=== PATIENT | male | born 1965 | race Caucasian/White ===

== ENCOUNTER → 2024-06-25 | Outpatient (CLI) | payer OTHER, SELFPAY ==
[2024-06-25 13:14] LABS: Collection Type, Urine Clean Catch
[2024-06-25 13:32] LABS: Basophils % (Auto) 1 % (0-2.5); Eosinophils # (Auto) 0.2 Thou/mm3 (0.0-0.5); Eosinophils % (Auto) 3 % (0-10); Hematocrit 41.3 % (41.0-53.0); Hemoglobin 14.2 g/dL (13.5-16.0); Immature Granulocytes % (Auto) 0 % (0-0); Immature Granulocytes Auto 0.01 Thou/mm3 (0.00-0.00); Lymphocytes % (Auto) 27 % (10-50); Mean Corpuscular HGB Conc 34.4 g/dl (31.0-37.0); Mean Corpuscular Hemoglobin 30.1 pg (25.0-35.0); Mean Corpuscular Volume 88 fL (80-100); Monocytes # (Auto) 0.6 Thou/mm3 (0.0-0.8); Monocytes % (Auto) 8 % (0-12); Neutrophils # (Auto) 4.4 Thou/mm3 (1.8-7.7); Neutrophils % (Auto) 61 % (37-80); Nucleated Red Blood Cell % 0 /100 WBC (0); Platelet Count 225 Thou/mm3 (140-440); RDW Standard Deviation 39.8 fL (35.1-43.9); Red Blood Count 4.72 Miln/mm3 (4.50-5.90); White Blood Count 7.2 Thou/mm3 (3.8-10.6)
[2024-06-25 13:37] LABS: Bilirubin,Urine Negative (Negative); Blood,Urine Negative (Negative); Clarity,Urine Clear (Clear/Hazy); Color,Urine Yellow (Lt Yel-Yel); Glucose, Urine Negative (Negative); Ketones,Urine Negative (Negative); Leukocyte Esterase,Urine Negative (Negative); Nitrite,Urine Negative (Negative); Protein,Urine Negative (Neg - Trace); RBC,Urine 3 /hpf (0-3); Specific Gravity,Urine 1.023 (1.001-1.035); Squamous Epithelial Cell,Urine < 1 /hpf (0-5); Urobilinogen,Urine Negative mg/dL (0.0-1.0); WBC,Urine 1 /hpf (0-5)
[2024-06-25 13:42] LABS: Glucose Estimated Average 123 mg/dL (80-131); Hemoglobin A1C 5.9 % Hgb (4.8-6.0)
[2024-06-25 13:49] LABS: Creatinine MALB Rnd Ur 142 mg/dL (30-125); Microalbumin Creat Ratio 15 mg/gCrea (<30); Microalbumin, Random Urine 21 mg/L (0-300)
[2024-06-25 13:54] LABS: Alanine Aminotransferase 31 U/L (10-49); Albumin, Serum 4.3 gm/dL (3.5-5.0); Albumin/Globulin Ratio 1.9 (1.2-2.2); Alkaline Phosphatase 73 U/L (46-116); Anion Gap 11 (7-16); Aspartate Amino Transferase 30 U/L (0-34); BUN/Creatinine Ratio 19 Ratio (12-20); Bilirubin,Total 0.6 mg/dL (0.3-1.2); Blood Urea Nitrogen 21 mg/dL (9-23); Calcium 10.3 mg/dL (8.3-10.6); Calcium (Corrected) 10.3 mg/dL (8.5-10.1); Carbon Dioxide 26.9 mMol/L (20.0-31.0); Cardiac Risk Estimate 3.6 RATIO (4.0-6.7); Chloride 104 mMol/L (98-107); Cholesterol 148 mg/dL (132-200); Creatinine (Component) 1.1 mg/dL (0.6-1.3); Globulin 2.3 gm/dL (2.3-3.5); Glucose 96 mg/dL (74-106); HDL Cholesterol 41 mg/dL (40-60); LDL Cholesterol,Calculated 75 mg/dL (0-130); Osmolality,Calculated 286 (275-295); Potassium 3.9 mMol/L (3.4-5.1); Sodium 142 mMol/L (136-145); Total Protein 6.6 gm/dL (5.7-8.2); Triglycerides 160 mg/dL (30-150); Uric Acid 6.9 mg/dL (3.7-9.2); eGFR > 60 See Note
== END | disposition home or self-care (01) ==
PROVIDERS: PCP Family Medicine; Referring Provider Family Medicine; Visit Provider Family Medicine
DX: Z00.00 Encounter for general adult medical examination without abnormal findings (principal); E11.9 Type 2 diabetes mellitus without complications; E79.0 Hyperuricemia without signs of inflammatory arthritis and tophaceous disease; E78.2 Mixed hyperlipidemia
CPT/HCPCS: 36415; 80053; 80061; 81001; 82043; 82570; 83036; 84550; 85025

== ENCOUNTER 2024-11-24 18:23 | Emergency (ER) | payer OTHER, SELFPAY ==
[2024-11-24 18:24] VITALS: BMI 36.2
[2024-11-24 18:35] VITALS: BP 120/86; PULSE 79; RESP 16; TEMP 36.7; O2SAT 96; BMI 36.2
[2024-11-24 19:18] VITALS: BP 140/82; PULSE 81; RESP 14; TEMP 37; O2SAT 99
--- NOTE | 2024-11-24 19:23 | EDNOTE_ITS ---
ED Abdominal Pain RME/HPI General Chief Complaint: Abdominal Pain Stated complaint: ABD PAIN; POSS SBO, SENT BY DR. SIERRA Time seen by provider: 11/24/24 19:14 Arrival date/time: 11/24/24 18:23 RME / HPI RME / HPI narrative: Dr. Fonseca?s Main ED Evaluation: 58yo male presents to the ED for a chief complaint of diffuse abdominal pain. Patient has been having intermittent diffuse abdominal pain (worse at the epigastric area and RLQ) for the last 6 weeks, reporting it got significantly worse today. Patient currently rates his pain a 6-7 out of 10 in severity. Patient denies any N/V/D, fever, chills, sweating, UTI symptoms, or any other associated symptoms. He is passing gas. No previous abdominal surgeries. NKA. Related Data Home Medications ?Medication ?Instructions ?Recorded ?Confirmed omeprazole 40 mg capsule,delayed 40 mg PO QDAY 9 11/25/24 release lisinopril 20 1 tab PO QDAY 02/27/2411/25 mg-hydrochlorothiazide 25 mg tablet aspirin 81 mg tablet,delayed 81 mg PO QDAY 11/25/24 release (Adult Aspirin Regimen) atorvastatin 10 mg tablet mg PO QDAY 11/25/24 famotidine 20 mg tablet mg Q12H 11/25/24 Allergies Allergy/AdvReac Type Severity Reaction Status Date / Time No Known Allergies Allergy Verified 11/24/24 18:26 Review of Systems Review of Systems Systems Reviewed: All systems reviewed, normal except as documented Past Medical History Past Medical History NEUROLOGIC: Negative Neurological Disorders or Seizures CARDIAC: Positive Cardiac Disorders, Hypercholesterolemia and Hypertension; Negative Congestive Heart Failure RESPIRATORY: Negative Chronic Obstructive Pulmonary Disease (COPD) or Asthma GASTROINTESTINAL: Positive Gastrointestinal Disorders (OCCASSIONAL NAUSEA) and Gastroesophageal Reflux Disease GENITOURINARY: Negative Genitourinary Disorders or Renal Disease MUSCULOSKELETAL: Negative Musculoskeletal Disorders ENDOCRINE: Positive Endocrine Disorders and Diabetes Mellitus Type 2 (DIET CONTROLLED); Negative Diabetes Mellitus Type 1 HEMATOLOGIC: Negative Blood Disorders or Sickle Cell Disease OTHER HISTORY: Positive Chicken Pox; Negative Falls, Blood Transfusions, Blood Transfusion Reaction, Anesthesia Reactions or MRSA Family History FAMILY HISTORY: Positive Family Cardiac Disorders Social History SMOKING STATUS: Current every day smoker ED Exam Narrative Physical exam: GENERAL APPEARANCE: alert and oriented x 4, well-developed, well-nourished, no acute distress VITALS: All vitals were reviewed and the pulse ox is 99% on room air, which is normal according to my interpretation. HEENT: Normocephalic, atraumatic; pupils equal, round, reactive to light; EOMI; mucous membranes pink, moist; oropharynx clear NECK: Supple LUNGS: CTABL; no wheezes, no rales, no rhonchi HEART: Regular rate, regular rhythm; normal S1, S2; no murmurs ABDOMEN: non distended; normal BS; soft, no tenderness, no guarding, no rebound; no masses, no organomegaly, no hernia BACK: no CVA tenderness EXTREMITIES: atraumatic; no edema NEUROLOGIC: awake; alert and oriented x4; cranial nerves II-XII grossly intact; no focal sensory or motor deficits PSYCHIATRIC: appropriate mood and affect SKIN: warm, dry, normal color; no rashes Course Quality Measures none Orders Category Date Time Status CT Screening NOW Care 11/24/24 19:24 Active Automotive Manager NOW Care 11/24/24 19:23 Active EKG (ED ONLY) *Do not use* NOW Care 11/24/24 19:[address] abdomen pelvis w con Stat Exams 11/24/24 20:25 Completed EKG (ED Only) Stat Exams 11/24/24 19:23 Draft US abdomen limited Stat Exams 11/24/24 21:14 Completed XR abdomen series w chest 1V Stat Exams 11/24/24 19:25 Completed B-Type Natriuretic Peptide Stat Lab 11/24/24 19:28 Completed CBC Stat Lab 11/24/24 19:28 Completed Comprehensive Metabolic Panel Stat Lab 11/24/24 19:28 Completed Lactate (Lactic Acid) Stat Lab 11/24/24 19:28 Completed Lipase Stat Lab 11/24/24 19:28 Completed Magnesium Stat Lab 11/24/24 19:28 Completed Troponin I Stat Lab 11/24/24 19:28 Completed Troponin I Stat Lab 11/24/24 23:21 Completed UA, C/S IF [Urinalysis, C/S if Indicated] Stat Lab 11/24/24 19:40 Completed Morphine Inj Med 11/24/24 19:23 Discontinued 5 mg IVP X1 ONE Morphine Inj Med 11/25/24 05:17 Discontinued 5 mg IVP X1 ONE Ondansetron Inj [Zofran Inj] Med 11/24/24 19:23 Discontinued 4 mg IVP X1 ONE Ondansetron Inj [Zofran Inj] Med 11/25/24 05:17 Discontinued 4 mg IVP X1 ONE Reevaluation(s) Reevaluation #1: Patient states he feels significantly better compared to when he initially came in. Time: 23:01 Vital Signs Vital signs: Vital Signs Temperature 98.1 F 11/24/24 18:35 Pulse Rate 79 11/24/24 18:35 Respiratory Rate 16 11/24/24 18:35 Blood Pressure 120/86 H 11/24/24 18:35 Pulse Oximetry (%) 96 11/24/24 18:35 Oxygen Delivery Method Room Air 11/24/24 18:35 Abdominal Pain MDM MDM Narrative MDM Narrative:: Scribe Attestation: 11/24/24 - Barbara Juarez am scribing for and in the presence of Dr. Fonseca. 2121: Discussed with Dr. Moss, our radiologist, regarding the patient's CT abdomen pelvis results and comparison with the previous CT done on 09/28/18. Per Dr. Moss, previous CT showed multiple renal cysts, however there was no dilatation of the renal pelvis on the previous scan. 2340: Discussed case with [facility]'s transfer center. Discussed patients ED course, exam findings, labs, and radiology results. States they will not call their urologist until 6 AM. 0538: Discussed case with [facility] transfer center. Discussed patients ED course, exam findings, labs, and radiology results. States they will not call their urologist until 7 AM. 0600: Care signed out to Dr. Perera (emergency physician). Past medical, surgical, social and family history reviewed. Vitals and home medications reviewed. Results and treatment plan discussed. They will assume the care of the patient at this time and will follow the patient, pending transfer. Patient data External records reviewed:: [facility] previous records (Per chart review, patient was seen here on 09/28/18 for diverticulitis.) Clinical information provided by:: patient Social determinants that could affect healthcare access:: none Patient has the following chronic illnesses:: HTN How is presenting disease/condition affected by chronic disease/condition?: uneffected by Evaluation data The following diagnostics were reviewed and interpreted by me:: lab results, radiology exam(s) and EKG tracing(s) Lab and/or radiology exams considered but not ordered:: none Interpretation Summary: CBC normal, AST 162, ALT 126, Troponin normal, BNP normal, Lipase normal, UA unremarkable. EKG done at 1935, NSR, rate of 81, mild low voltage throughout, IVCD, no acute ischemic changes, according to my interpretation. ------- [facility] Report Signed Patient: MARY QUINONES. Record#: [id number] Birthdate: 1965 Age/Sex: 58 / M Location: [facility] Attending Dr: Ordering Physician: Cary Fonseca MD Date of Service: 11/24/24 Procedure(s): XR abdomen series w chest 1V Accession Number(s): [id number] cc: Zion Moss MD; Anne Patterson MD; Cary Fonseca MD~ Examination: Abdominal series 3 views including AP portable chest Technique one AP portable upright chest, AP supine AP upright abdomen total 3 views Date and time: November 24, 2024 1945 hours INDICATIONS: Abdominal pain beginning 6 months ago. FINDINGS: Normal heart size Lungs are clear. Moderate to large amounts of stool throughout the colon. No obstruction Possible 10 mm gallstone IMPRESSION: Moderate to large amounts of stool throughout the colon Consider ultrasound follow-up to confirm cholelithiasis Dictated By: Zion Moss MD Signed By: <Electronically signed by Zion Moss MD in OV> 11/24/242111 [facility] Report Signed Patient: MARY QUINONES [facility]. Record#: [id number] Birthdate: 1965 Age/Sex: 58 / M Location: [facility] Attending Dr: Ordering Physician: Cary Fonseca MD Date of Service: 11/24/24 Procedure(s): CT abdomen pelvis w con Accession Number(s): [id number] cc: Zion Moss MD; Anne Patterson MD; Cary Fonseca MD~ Examination: CT abdomen with intravenous contrast CT pelvis with intravenous contrast 2-D coronal reconstructions 2-D sagittal reconstructions Date and time of exam:November 24, 20242024 hours INDICATIONS: Generalized abdominal pain and vomiting today. CTDI: vol (mGy) 13.3 DLP: (mGycm) 9 or 10 Technique: Multiple axial sections of the abdomen and pelvis have been obtained. 64 slice high-resolution scanner used. 3 mm axial sections have been obtained, post intravenous injection 60 cc Isovue 370 2-D sagittal, coronal reconstructions obtained. Low dose protocols were performed. One or more of the following dose reduction techniques were used; automated exposure control, adjustment of the mA and/or KV according to patient size, use of iterative reconstruction technique. Findings: No focal liver or splenic lesions Cholelithiasis No pancreatic mass Markedly dilated right renal pelvic collecting system, congenital ureteropelvic junction obstruction pattern No bowel obstruction Colonic diverticulosis, no diverticulitis Normal appendix Significant prostatomegaly, 7 cm IMPRESSION: Findings most consistent with advanced congenital right ureteropelvic junction obstruction Recommend urology consultation Significant prostatomegaly Cholelithiasis Dictated By: Zion Moss MD Signed By: <Electronically signed by Zion Moss MD in OV> 11/24/242106 [facility] Signed Patient: MARY QUINONES Record#: [id number] Birthdate: 1965 Age/Sex: 58 / M Location: [facility] Attending Dr: Ordering Physician: Cary Fonseca MD Date of Service: 11/24/24 Procedure(s): US abdomen limited Accession Number(s): [id number] cc: Zion Moss MD; Anne Patterson MD; Cary Fonseca MD~ Examination: Abdomen sonogram, Limited Date and time of exam: November 24, 2024, 2128 hours INDICATIONS: Right upper abdominal pain and elevated liver function tests on laboratory examination today Technique: Real-time aparicio scale transabdominal sonographic images of the upper abdomen obtained. Findings: Gallbladder sludge Gallstones Gallbladder wall 0.3 cm no edema Common bile duct 0.6 cm no stones Pancreatic head 2.8 cm Liver 15.7 cm no liver lesions Normal hepatopedal portal venous flow Patent IVC Large anechoic area involving the right kidney, please see the CT scan abdomen and pelvis today IMPRESSION: Cholelithiasis, negative for cholecystitis Fatty infiltration throughout the liver Dictated By: Zion Moss MD Signed By: <Electronically signed by Zion Moss MD in OV> 11/24/24 2225 Medications / Prescriptions Medications or Prescriptions considered but not ordered:: none Medication administrations:: Medication Administration History Discontinued Medications Morphine Sulfate (Morphine Sulf Inj 10 Mg/Ml Vial) 5 mg IVP X1 ONE Stop: 11/24/24 19:24 Last Admin: 11/24/24 19:32 Dose: 5 mg Documented By: DT Morphine Sulfate (Morphine Sulf Inj 10 Mg/Ml Vial) 5 mg IVP X1 ONE Stop: 11/25/24 05:18 Last Admin: 11/25/24 05:25 Dose: 5 mg Documented By: DT Ondansetron HCl (Ondansetron Inj 2 Mg/Ml Inj 2 Ml) 4 mg IVP X1 ONE Stop: 11/24/24 19:24 Last Admin: 11/24/24 19:33 Dose: 4 mg Documented By: DT Ondansetron HCl (Ondansetron Inj 2 Mg/Ml Inj 2 Ml) 4 mg IVP X1 ONE Stop: 11/25/24 05:18 Last Admin: 11/25/24 05:26 Dose: 4 mg Documented By: DT see above Consultations Consultation(s) initiated? (list below): Yes Diagnosis Differential diagnosis abdominal pain: acute appendicitis and other (cholecystitis, kidney stone, AGE) Most likely diagnosis given after review of the tests above:: right ureteral occlusion, severe hydronephrosis Admission Indicated Admission indicated?: not indicated Explain why admission is indicated or not indicated:: Patient requires a higher [id number]. Admission Request Was there a request for admission?: No Disposition Plan Disposition Plan: other (specify) (Signed out to Dr. Perera at 6 AM pending transfer.) Discharge Plan Prescriptions/Referrals Prescriptions/Med Rec: No Action omeprazole 40 mg Capsule,Delayed Release(Dr/Ec) 40 mg PO QDAY lisinopril-hydrochlorothiazide 20-25 mg tablet 1 tab PO QDAY Patient Comments: TAKE 1 TABLET BY MOUTH EVERY DAY FOR HIGH BLOOD PRESSURE aspirin [Adult Aspirin Regimen] 81 mg tablet,delayed release (DR/EC) 81 mg PO QDAY atorvastatin 10 mg tablet PO QDAY Patient Comments: TAKE 1 TABLET BY MOUTH ONCE NIGHTLY FOR HIGH CHOLESTEROL famotidine 20 mg tablet Q12H Patient Comments: TAKE 1 TABLET BY MOUTH TWICE A DAY Referrals: Anne Kennedy MD [Primary Care Provider] - In 1 week Problem List Clinical Impression: Occlusion of right ureter, Hydronephrosis Patient/Caregiver Discharge Instructions Print Language: Upper Sorbian
--- NOTE | 2024-11-24 19:23 | EKG_ITS ---
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
[2024-11-24] MEDS: MORPHINE SULF INJ 10 MG/ML VIAL 5 MG IVP (19:32)
[2024-11-24] MEDS: ONDANSETRON INJ 2 MG/ML INJ 2 ML 4 MG IVP (19:33)
[2024-11-24 19:42] LABS: Lactate (Lactic Acid) 1.7 mMol/L (0.4-2.0)
[2024-11-24 19:45] LABS: Basophils # (Auto) 0.0 Thou/mm3 (0.0-0.2); Basophils % (Auto) 1 % (0-2.5); Eosinophils # (Auto) 0.1 Thou/mm3 (0.0-0.5); Eosinophils % (Auto) 2 % (0-10); Hematocrit 39.7 % (41.0-53.0); Hemoglobin 13.7 g/dL (13.5-16.0); Immature Granulocytes Auto 0.01 Thou/mm3 (0.00-0.00); Lymphocytes # (Auto) 1.4 Thou/mm3 (1.0-4.8); Lymphocytes % (Auto) 24 % (10-50); Mean Corpuscular HGB Conc 34.5 g/dl (31.0-37.0); Mean Corpuscular Hemoglobin 30.1 pg (25.0-35.0); Mean Corpuscular Volume 87 fL (80-100); Monocytes # (Auto) 0.7 Thou/mm3 (0.0-0.8); Monocytes % (Auto) 11 % (0-12); Neutrophils # (Auto) 3.7 Thou/mm3 (1.8-7.7); Neutrophils % (Auto) 62 % (37-80); Nucleated Red Blood Cell # 0.00 Thou/mm3 (0.00-0.00); Nucleated Red Blood Cell % 0 /100 WBC (0); Platelet Count 220 Thou/mm3 (140-440); RDW Standard Deviation 41.2 fL (35.1-43.9); Red Blood Count 4.55 Miln/mm3 (4.50-5.90); White Blood Count 6.0 Thou/mm3 (3.8-10.6)
[2024-11-24 19:49] LABS: Collection Type, Urine Clean Catch
[2024-11-24 20:02] LABS: B-Type Natriuretic Peptide < 20 pg/mL (0-100)
[2024-11-24 20:02] LABS: Amorphous Crystals,Urine Present (Absent); Bilirubin,Urine Negative (Negative); Blood,Urine Negative (Negative); Clarity,Urine Clear (Clear/Hazy); Color,Urine Yellow (Lt Yel-Yel); Culture Indicated,Urine Not Indicated; Glucose, Urine Negative (Negative); Ketones,Urine Negative (Negative); Leukocyte Esterase,Urine Negative (Negative); Nitrite,Urine Negative (Negative); PH,Urine 8.0 (5.0-7.0); Protein,Urine Negative (Neg - Trace); RBC,Urine 1 /hpf (0-3); Specific Gravity,Urine 1.024 (1.001-1.035); Squamous Epithelial Cell,Urine < 1 /hpf (0-5); Urobilinogen,Urine 4.0 mg/dL (0.0-1.0); WBC,Urine < 1 /hpf (0-5)
[2024-11-24 20:06] LABS: Alanine Aminotransferase 126 U/L (10-49); Albumin, Serum 4.1 gm/dL (3.5-5.0); Albumin/Globulin Ratio 1.9 (1.2-2.2); Alkaline Phosphatase 114 U/L (46-116); Anion Gap 10 (7-16); Aspartate Amino Transferase 162 U/L (0-34); BUN/Creatinine Ratio 15 Ratio (12-20); Bilirubin,Total 0.9 mg/dL (0.3-1.2); Blood Urea Nitrogen 18 mg/dL (9-23); Calcium 9.1 mg/dL (8.3-10.6); Calcium (Corrected) 9.1 mg/dL (8.5-10.1); Carbon Dioxide 26.7 mMol/L (20.0-31.0); Chloride 109 mMol/L (98-107); Creatinine (Component) 1.2 mg/dL (0.6-1.3); Estimated Creatinine Clearance 86.6 mL/min (>60); Globulin 2.2 gm/dL (2.3-3.5); Glucose 117 mg/dL (74-106); Lipase 51 U/L (12-53); Magnesium 1.9 mg/dL (1.6-2.6); Osmolality,Calculated 293 (275-295); Potassium 3.6 mMol/L (3.4-5.1); Sodium 146 mMol/L (136-145); Total Protein 6.3 gm/dL (5.7-8.2); Troponin I < 0.020 ng/mL (0.0-0.045); eGFR > 60 See Note
--- NOTE | 2024-11-24 20:25 | XR_ITS ---
Examination: CT abdomen with intravenous contrast CT pelvis with intravenous contrast 2-D coronal reconstructions 2-D sagittal reconstructions Date and time of exam:November 24, 20242024 hours INDICATIONS: Generalized abdominal pain and vomiting today. CTDI: vol (mGy) 13.3 DLP: (mGycm) 9 or 10 Technique: Multiple axial sections of the abdomen and pelvis have been obtained. 64 slice high-resolution scanner used. 3 mm axial sections have been obtained, post intravenous injection 60 cc Isovue 370 2-D sagittal, coronal reconstructions obtained. Low dose protocols were performed. One or more of the following dose reduction techniques were used; automated exposure control, adjustment of the mA and/or KV according to patient size, use of iterative reconstruction technique. Findings: No focal liver or splenic lesions Cholelithiasis No pancreatic mass Markedly dilated right renal pelvic collecting system, congenital ureteropelvic junction obstruction pattern No bowel obstruction Colonic diverticulosis, no diverticulitis Normal appendix Significant prostatomegaly, 7 cm IMPRESSION: Findings most consistent with advanced congenital right ureteropelvic junction obstruction Recommend urology consultation Significant prostatomegaly Cholelithiasis
--- NOTE | 2024-11-24 21:14 | XR_ITS ---
Examination: Abdomen sonogram, Limited Date and time of exam: November 24, 2024, 2128 hours INDICATIONS: Right upper abdominal pain and elevated liver function tests on laboratory examination today Technique: Real-time aparicio scale transabdominal sonographic images of the upper abdomen obtained. Findings: Gallbladder sludge Gallstones Gallbladder wall 0.3 cm no edema Common bile duct 0.6 cm no stones Pancreatic head 2.8 cm Liver 15.7 cm no liver lesions Normal hepatopedal portal venous flow Patent IVC Large anechoic area involving the right kidney, please see the CT scan abdomen and pelvis today IMPRESSION: Cholelithiasis, negative for cholecystitis Fatty infiltration throughout the liver
[2024-11-24 21:30] VITALS: BP 125/76; PULSE 62; RESP 20; TEMP 36.8; O2SAT 96
[2024-11-24 22:00] VITALS: BP 118/67; RESP 16; O2SAT 96
[2024-11-24 23:00] VITALS: BP 120/70; RESP 18; O2SAT 96
--- NOTE | 2024-11-24 23:22 | PC.NURSE ---
MD Fonseca requesting transfer due to Right Urethral Obstruction, Faxed over imaging report, progress notes, and face sheet to [facility] for review
[2024-11-24 23:39] VITALS: BP 133/84; PULSE 54; RESP 14; TEMP 37; O2SAT 99
[2024-11-24 23:54] LABS: Troponin I < 0.020 ng/mL (0.0-0.045)
[2024-11-25] VITALS (9 sets, daily range): BP systolic 117–145; BP diastolic 53–98; PULSE 53–80; RESP 13–20; TEMP 36.7–37; O2SAT 94–99
--- NOTE | 2024-11-25 04:36 | PC.NURSE ---
Kelly and PETE both stated they will contact their urologist until after 0700. MD Fonseca made aware
[2024-11-25] MEDS: MORPHINE SULF INJ 10 MG/ML VIAL 5 MG IVP (05:25)
[2024-11-25] MEDS: ONDANSETRON INJ 2 MG/ML INJ 2 ML 4 MG IVP (05:26)
--- NOTE | 2024-11-25 06:21 | PD.EDADDENDU ---
Emergency Room Addendum <Romi Oliveira - Last Filed: 11/25/24 16:48> Addendum Narrative: 0600: Care assumed from Dr. Fonseca, the previous shift emergency physician. Past medical, surgical, social and family history reviewed. Vitals and home medications reviewed. I will assume the care of the patient at this time, pending transfer for urology. Please refer to the emergency department record for history and examination from initial visit.? 58-year-old male with past medical history of hypertension presents to the Emergency Department with complaint of central abdominal pain that began in September 2024 and has progressively worsened. Patient describes yesterday as being the worst, stating he felt ?miserable? yesterday. He drinks alcohol socially, smokes cigarettes, and uses drugs. No known allergies reported. Physical exam by me shows patient under no acute distress at this time, stable. Differential diagnoses include peptic ulcer disease, pancreatitis, and substance-related gastrointestinal irritation. Case presented o/n to [facility] urology, received a call back stating that if patient's pain was well-controlled he can follow-up as an outpatient versus transfer to [facility] for a stent. Patient requiring multiple doses of pain medication, states that his pain has been unbearable at home. Patient would like to be transferred for urologic intervention. For urologic intervention. I updated the transfer center, but discussed the case with Dr. Ca [facility], accepted patient for transfer. Patient transferred hemodynamically stable NAD. EMS ETA 1030 hours. Accepted [facility] ER-ER. <Anne Perera MD - Last Filed: 11/27/24 08:41> Addendum Narrative: 0600: Care assumed from Dr. Fonseca, the previous shift emergency physician. Past medical, surgical, social and family history reviewed. Vitals and home medications reviewed. I will assume the care of the patient at this time, pending transfer for urology. Please refer to the emergency department record for history and examination from initial visit.? 58-year-old male with past medical history of hypertension presents to the Emergency Department with complaint of central abdominal pain that began in September 2024 and has progressively worsened. Patient describes yesterday as being the worst, stating he felt ?miserable? yesterday. He drinks alcohol socially, smokes cigarettes, and uses drugs. No known allergies reported. Physical exam by me shows patient under no acute distress at this time, stable. Differential diagnoses include peptic ulcer disease, pancreatitis, and substance-related gastrointestinal irritation. Case presented o/n to [facility] urology, received a call back stating that if patient's pain was well-controlled he can follow-up as an outpatient versus transfer to [facility] for a stent. Patient requiring multiple doses of pain medication, states that his pain has been unbearable at home. Patient would like to be transferred for urologic intervention. For urologic intervention. I updated the transfer center, but discussed the case with Dr. Ca [facility], accepted patient for transfer. Patient transferred hemodynamically stable NAD. Critical Care Time <Romi Oliveira - Last Filed: 11/25/24 16:48> Critical Care Time Critical Care Time: Yes Total Critical Care Time (min.): 60 Attestation: The high probability of sudden, clinically significant deterioration in the patient?s condition required the highest level of my preparedness to intervene urgently. The services I provided to this patient were to treat and/or prevent clinically significant deterioration. Services included the following: chart data review, reviewing nursing notes and/or old charts, documentation time, sap basis consultant collaboration regarding findings and treatment options, medication orders and management, direct patient care, vital sign assessments and ordering, interpreting and reviewing diagnostic studies and lab tests. Aggregate critical care time includes only time during which I was engaged in work directly related to the patient?s care, as described above, whether at bedside or elsewhere in the Emergency Department. It did not include time spent performing other reported procedures or the services of residents, students, nurses or physician assistants. Results <Romi Oliveira - Last Filed: 11/25/24 16:48> Objective Laboratory: Laboratory Last Values WBC 6.0 Thou/mm3 (3.8-10.6) 11/24/24 19:28 RBC 4.55 Miln/mm3 (4.50-5.90) 11/24/24 19:28 Hgb 13.7 g/dL (13.5-16.0) 11/24/24 19:28 Hct 39.7 % (41.0-53.0) L 11/24/24 19:28 MCV 87 fL (80-100) 11/24/24 19:28 MCH 30.1 pg (25.0-35.0) 11/24/24 19:28 MCHC 34.5 g/dl (31.0-37.0) 11/24/24 19:28 RDW Std Deviation 41.2 fL (35.1-43.9) 11/24/24 19:28 Plt Count 220 Thou/mm3 (140-440) 11/24/24 19:28 Neut % (Auto) 62 % (37-80) 11/24/24 19:28 Lymph % (Auto) 24 % (10-50) 11/24/24 19:28 Toole % (Auto) 11 % (0-12) 11/24/24 19:28 Eos % (Auto) 2 % (0-10) 11/24/24 19:28 Baso % (Auto) 1 % (0-2.5) 11/24/24 19:28 Neut # (Auto) 3.7 Thou/mm3 (1.8-7.7) 11/24/24 19:28 Lymph # (Auto) 1.4 Thou/mm3 (1.0-4.8) 11/24/24 19:28 Toole # (Auto) 0.7 Thou/mm3 (0.0-0.8) 11/24/24 19:28 Eos # (Auto) 0.1 Thou/mm3 (0.0-0.5) 11/24/24 19:28 Baso # (Auto) 0.0 Thou/mm3 (0.0-0.2) 11/24/24 19:28 Immature Gran # (Auto) 0.01 Thou/mm3 (0.00-0.00) H 11/24/24 19: Absolute Nucleated RBC 0.00 Thou/mm3 (0.00-0.00) 11/24/24 19: Immature Gran % 0 % (0-0) 11/24/24 19: Nucleated RBC % 0 /100 WBC (0) 11/24/24 19:28 Sodium 146 mMol/L (136-145) H 11/24/24 19:28 Potassium 3.6 mMol/L (3.4-5.1) 11/24/24 19:28 Chloride 109 mMol/L (98-107) H 11/24/24 19:28 Carbon Dioxide 26.7 mMol/L (20.0-31.0) 11/24/24 19:28 Anion Gap 10 (7-16) 11/24/24 19:28 BUN 18 mg/dL (9-23) 11/24/24 19: Creatinine 1.2 mg/dL (0.6-1.3) 11/24/24 19:28 Estim Creat Clear Calc 86.6 mL/min (>60) 11/24/24 19:28 eGFR > 60 See Note (60-) 11/24/24 19: BUN/Creatinine Ratio 15 Ratio (12-20) 11/24/24 19: Glucose 117 mg/dL (74-106) H 11/24/24 19:28 Calculated Osmolality 293 (275-295) 11/24/24 19:28 Lactic Acid 1.7 mMol/L (0.4-2.0) 11/24/24 19:28 Calcium 9.1 mg/dL (8.3-10.6) 11/24/24 19: Corrected Calcium 9.1 mg/dL (8.5-10.1) 11/24/24 19: Magnesium 1.9 mg/dL (1.6-2.6) 11/24/24 19:28 Total Bilirubin 0.9 mg/dL (0.3-1.2) 11/24/24 19:28 AST 162 U/L (0-34) H 11/24/24 19:28 ALT 126 U/L (10-49) H 11/24/24 19:28 Alkaline Phosphatase 114 U/L (46-116) 11/24/24 19: Troponin I < 0.020 ng/mL (0.0-0.045) 11/24/24 23:21 B-Natriuretic Peptide < 20 pg/mL (0-100) 11/24/24 19:28 Total Protein 6.3 gm/dL (5.7-8.2) 11/24/24 19:28 Albumin 4.1 gm/dL (3.5-5.0) 11/24/24 19:28 Globulin 2.2 gm/dL (2.3-3.5) L 11/24/24 19:28 Albumin/Globulin Ratio 1.9 (1.2-2.2) 11/24/24 19:28 Lipase 51 U/L (12-53) 11/24/24 19:28 Ur Collection Type Clean Catch 11/24/24 19:40 Urine Color Yellow (Lt Yel-Yel) 11/24/24 19:40 Urine Clarity Clear (Clear/Hazy) 11/24/24 19:40 Urine pH 8.0 (5.0-7.0) H 11/24/24 19:40 Ur Specific [place] 1.024 (1.001-1.035) 11/24/24 19:40 Urine Protein Negative (Neg - Trace) 11/24/24 19:40 Urine Glucose (UA) Negative (Negative) 11/24/24 19:40 Urine Ketones Negative (Negative) 11/24/24 19:40 Urine Blood Negative (Negative) 11/24/24 19:40 Urine Nitrite Negative (Negative) 11/24/24 19:40 Urine Bilirubin Negative (Negative) 11/24/24 19:40 Urine Urobilinogen (Auto) 4.0 mg/dL (0.0-1.0) 11/24/24 19:40 Ur Leukocyte Esterase Negative (Negative) 11/24/24 19:40 Urine RBC 1 /hpf (0-3) 11/24/24 19:40 Urine WBC < 1 /hpf (0-5) 11/24/24 19:40 Ur Squamous Epith Cells < 1 /hpf (0-5) 11/24/24 19:40 Amorphous Crystals Present (Absent) A 11/24/24 19:40 Urine Bacteria None (None) 11/24/24 19:40 Ur Culture Indicated? Not Indicated 11/24/24 19:40 Imaging: Procedure(s): US abdomen limited Accession Number(s): [id number] cc: Zion Moss MD; Anne Patterson MD; Cary Fonseca MD~ Examination: Abdomen sonogram, Limited Date and time of exam: November 24, 2024, 2128 hours INDICATIONS: Right upper abdominal pain and elevated liver function tests on laboratory examination today Technique: Real-time aparicio scale transabdominal sonographic images of the upper abdomen obtained. Findings: Gallbladder sludge Gallstones Gallbladder wall 0.3 cm no edema Common bile duct 0.6 cm no stones Pancreatic head 2.8 cm Liver 15.7 cm no liver lesions Normal hepatopedal portal venous flow Patent IVC Large anechoic area involving the right kidney, please see the CT scan abdomen and pelvis today IMPRESSION: Cholelithiasis, negative for cholecystitis Fatty infiltration throughout the liver Dictated By: Zion Moss MD Procedure(s): CT abdomen pelvis w yudelka Accession Number(s): [id number] cc: Zion Moss MD; Anne Patterson MD; Cary Fonseca MD~ Examination: CT abdomen with intravenous contrast CT pelvis with intravenous contrast 2-D coronal reconstructions 2-D sagittal reconstructions Date and time of exam:November 24, 20242024 hours INDICATIONS: Generalized abdominal pain and vomiting today. CTDI: vol (mGy) 13.3 DLP: (mGycm) 9 or 10 Technique: Multiple axial sections of the abdomen and pelvis have been obtained. 64 slice high-resolution scanner used. 3 mm axial sections have been obtained, post intravenous injection 60 cc Isovue 370 2-D sagittal, coronal reconstructions obtained. Low dose protocols were performed. One or more of the following dose reduction techniques were used; automated exposure control, adjustment of the mA and/or KV according to patient size, use of iterative reconstruction technique. 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 FINDINGS: Normal heart size Lungs are clear. Moderate to large amounts of stool throughout the colon. No obstruction Possible 10 mm gallstone IMPRESSION: Moderate to large amounts of stool throughout the colon Consider ultrasound follow-up to confirm cholelithiasis Dictated By: Zion Moss MD <Anne Perera MD - Last Filed: 11/27/24 08:41> Objective Laboratory: Laboratory Last Values WBC 6.0 Thou/mm3 (3.8-10.6) 11/24/24 19:28 RBC 4.55 Miln/mm3 (4.50-5.90) 11/24/24 19:28 Hgb 13.7 g/dL (13.5-16.0) 11/24/24 19:28 Hct 39.7 % (41.0-53.0) L 11/24/24 19:28 MCV 87 fL (80-100) 11/24/24 19:28 MCH 30.1 pg (25.0-35.0) 11/24/24 19:28 MCHC 34.5 g/dl (31.0-37.0) 11/24/24 19:28 RDW Std Deviation 41.2 fL (35.1-43.9) 11/24/24 19:28 Plt Count 220 Thou/mm3 (140-440) 11/24/24 19:28 Neut % (Auto) 62 % (37-80) 11/24/24 19:28 Lymph % (Auto) 24 % (10-50) 11/24/24 19:28 Toole % (Auto) 11 % (0-12) 11/24/24 19:28 Eos % (Auto) 2 % (0-10) 11/24/24 19:28 Baso % (Auto) 1 % (0-2.5) 11/24/24 19:28 Neut # (Auto) 3.7 Thou/mm3 (1.8-7.7) 11/24/24 19:28 Lymph # (Auto) 1.4 Thou/mm3 (1.0-4.8) 11/24/24 19:28 Toole # (Auto) 0.7 Thou/mm3 (0.0-0.8) 11/24/24 19:28 Eos # (Auto) 0.1 Thou/mm3 (0.0-0.5) 11/24/24 19:28 Baso # (Auto) 0.0 Thou/mm3 (0.0-0.2) 11/24/24 19:28 Immature Gran # (Auto) 0.01 Thou/mm3 (0.00-0.00) H 11/24/24 19:28 Absolute Nucleated RBC 0.00 Thou/mm3 (0.00-0.00) 11/24/24 19:28 Immature Gran % 0 % (0-0) 11/24/24 19:28 Nucleated RBC % 0 /100 WBC (0) 11/24/24 19:28 Sodium 146 mMol/L (136-145) H 11/24/24 19:28 Potassium 3.6 mMol/L (3.4-5.1) 11/24/24 19:28 Chloride 109 mMol/L (98-107) H 11/24/24 19:28 Carbon Dioxide 26.7 mMol/L (20.0-31.0) 11/24/24 19:28 Anion Gap 10 (7-16) 11/24/24 19:28 BUN 18 mg/dL (9-23) 11/24/24 19:28 Creatinine 1.2 mg/dL (0.6-1.3) 11/24/24 19:28 Estim Creat Clear Calc 86.6 mL/min (>60) 11/24/24 19:28 eGFR > 60 See Note (60-) 11/24/24 19:28 BUN/Creatinine Ratio 15 Ratio (12-20) 11/24/24 19:28 Glucose 117 mg/dL (74-106) H 11/24/24 19:28 Calculated Osmolality 293 (275-295) 11/24/24 19:28 Lactic Acid 1.7 mMol/L (0.4-2.0) 11/24/24 19:28 Calcium 9.1 mg/dL (8.3-10.6) 11/24/24 19:28 Corrected Calcium 9.1 mg/dL (8.5-10.1) 11/24/24 19:28 Magnesium 1.9 mg/dL (1.6-2.6) 11/24/24 19:28 Total Bilirubin 0.9 mg/dL (0.3-1.2) 11/24/24 19:28 AST 162 U/L (0-34) H 11/24/24 19:28 ALT 126 U/L (10-49) H 11/24/24 19:28 Alkaline Phosphatase 114 U/L (46-116) 11/24/24 19:28 Troponin I < 0.020 ng/mL (0.0-0.045) 11/24/24 23:21 B-Natriuretic Peptide < 20 pg/mL (0-100) 11/24/24 19:28 Total Protein 6.3 gm/dL (5.7-8.2) 11/24/24 19:28 Albumin 4.1 gm/dL (3.5-5.0) 11/24/24 19:28 Globulin 2.2 gm/dL (2.3-3.5) L 11/24/24 19:28 Albumin/Globulin Ratio 1.9 (1.2-2.2) 11/24/24 19:28 Lipase 51 U/L (12-53) 11/24/24 19:28 Ur Collection Type Clean Catch 11/24/24 19:40 Urine Color Yellow (Lt Yel-Yel) 11/24/24 19:40 Urine Clarity Clear (Clear/Hazy) 11/24/24 19:40 Urine pH 8.0 (5.0-7.0) H 11/24/24 19:40 Ur Specific [place] 1.024 (1.001-1.035) 11/24/24 19:40 Urine Protein Negative (Neg - Trace) 11/24/24 19:40 Urine Glucose (UA) Negative (Negative) 11/24/24 19:40 Urine Ketones Negative (Negative) 11/24/24 19:40 Urine Blood Negative (Negative) 11/24/24 19:40 Urine Nitrite Negative (Negative) 11/24/24 19:40 Urine Bilirubin Negative (Negative) 11/24/24 19:40 Urine Urobilinogen (Auto) 4.0 mg/dL (0.0-1.0) 11/24/24 19:40 Ur Leukocyte Esterase Negative (Negative) 11/24/24 19:40 Urine RBC 1 /hpf (0-3) 11/24/24 19:40 Urine WBC < 1 /hpf (0-5) 11/24/24 19:40 Ur Squamous Epith Cells < 1 /hpf (0-5) 11/24/24 19:40 Amorphous Crystals Present (Absent) A 11/24/24 19:40 Urine Bacteria None (None) 11/24/24 19:40 Ur Culture Indicated? Not Indicated 11/24/24 19:40
--- NOTE | 2024-11-25 06:55 | PC.NURSE ---
[facility] reached back stated if pt's pain is not controlled then they were recommended by their urologist Beto Ca to transfer for a stent placement, but if pt's pain is controlled then they would recommend pt to be seen out pt. Per MD Will pt needs to be transferred. home appliance technician made aware, disk requested from [employer]. Packet ready for transfer once disk gets added. [facility] made aware that we will proceed with transfer. They stated they will reach out to their urologist and reach back to MD WILL. Dilma made aware.
--- NOTE | 2024-11-25 07:22 | PC.NURSE ---
PT AWAKE ALERT, GCS 15 UPON ASSUMPTION OF CARE. DENIES ANY PAIN CURRENTLY. PT UP TO DATE ON POC AND IN AGREEMENT. VSS ON TELE, CALL AGRAWAL IN REACH, WILL CONT W/POC.
--- NOTE | 2024-11-25 07:28 | PC.CC ---
Addendum entered by Lance Quesada RN 11/25/24 08:39: [facility]30[facility] Original Note: 0705 CALL RECEIVED FROM JOSSUE TRANSFER NURSE AT [facility] WITH ACCEPTING INFORMATION. DR. WILBER VALLADARES ER TO ER. CALL REPORT TO [phone]. CONTACTED ED CHARGE NURSE KIERRA WITH ACCEPTING INFORMATION. [facility] CONTACTED FOR TRANSFER SETUP.
[2024-11-25] MEDS: MORPHINE SULF INJ 10 MG/ML VIAL 4 MG IVP (10:05)
--- NOTE | 2024-11-25 10:28 | PC.NURSE ---
PTS BELONGINGS W/PT ON BACK OF STRETCHER, PT HAD CELLPHONE IN HAND. AT BEDSIDE WHEN IMPERIAL HERE TO TAKE HIM, UP TO DATE ON WHERE PT IS GOING AND WHAT TO EXPECT.
== END 2024-11-25 10:00 | disposition short-term general hospital (02) ==
PROVIDERS: Emergency Medicine; Emergency Provider Emergency Medicine; PCP Family Medicine
DX: N13.1 Hydronephrosis with ureteral stricture, not elsewhere classified (principal); K80.20 Calculus of gallbladder without cholecystitis without obstruction; N40.0 Benign prostatic hyperplasia without lower urinary tract symptoms; K76.0 Fatty (change of) liver, not elsewhere classified; F17.210 Nicotine dependence, cigarettes, uncomplicated; I10 Essential (primary) hypertension
CPT/HCPCS: 36415; 74022; 74177; 76705; 80053; 81001; 83605; 83690; 83735; 83880; 84484; 85025; 93005; 96374; 96375; 96376; 99283; A4649; J2270; J2405; Q9967

== ENCOUNTER → 2024-12-03 | Outpatient (CLI) | payer OTHER, SELFPAY ==
[2024-12-03 15:39] LABS: Basophils # (Auto) 0.1 Thou/mm3 (0.0-0.2); Basophils % (Auto) 1 % (0-2.5); Eosinophils # (Auto) 0.2 Thou/mm3 (0.0-0.5); Eosinophils % (Auto) 4 % (0-10); Hematocrit 41.6 % (41.0-53.0); Hemoglobin 13.8 g/dL (13.5-16.0); Immature Granulocytes Auto 0.02 Thou/mm3 (0.00-0.00); Lymphocytes # (Auto) 1.9 Thou/mm3 (1.0-4.8); Lymphocytes % (Auto) 30 % (10-50); Mean Corpuscular HGB Conc 33.2 g/dl (31.0-37.0); Mean Corpuscular Hemoglobin 30.2 pg (25.0-35.0); Mean Corpuscular Volume 91 fL (80-100); Monocytes # (Auto) 0.6 Thou/mm3 (0.0-0.8); Monocytes % (Auto) 9 % (0-12); Neutrophils # (Auto) 3.6 Thou/mm3 (1.8-7.7); Neutrophils % (Auto) 56 % (37-80); Nucleated Red Blood Cell # 0.00 Thou/mm3 (0.00-0.00); Nucleated Red Blood Cell % 0 /100 WBC (0); Platelet Count 228 Thou/mm3 (140-440); RDW Standard Deviation 44.7 fL (35.1-43.9); Red Blood Count 4.57 Miln/mm3 (4.50-5.90); White Blood Count 6.3 Thou/mm3 (3.8-10.6)
[2024-12-03 17:05] LABS: Alanine Aminotransferase 675 U/L (10-49); Albumin, Serum 4.4 gm/dL (3.4-4.8); Albumin/Globulin Ratio 1.7 (1.2-2.2); Alkaline Phosphatase 303 U/L (46-116); Anion Gap 11 (7-16); Aspartate Amino Transferase 381 U/L (0-34); BUN/Creatinine Ratio 15 Ratio (12-20); Bilirubin,Total 0.5 mg/dL (0.3-1.2); Blood Urea Nitrogen 26 mg/dL (9-23); Calcium 9.7 mg/dL (8.3-10.6); Calcium (Corrected) 9.7 mg/dL (8.5-10.1); Carbon Dioxide 26.1 mMol/L (20.0-31.0); Chloride 105 mMol/L (98-107); Creatinine (Component) 1.7 mg/dL (0.6-1.3); Globulin 2.6 gm/dL (2.3-3.5); Glucose 108 mg/dL (74-106); Osmolality,Calculated 288 (275-295); Potassium 4.0 mMol/L (3.4-5.1); Sodium 142 mMol/L (136-145); Total Protein 7.0 gm/dL (5.7-8.2); eGFR 46 See Note
== END | disposition home or self-care (01) ==
PROVIDERS: PCP Family Medicine; Referring Provider Family Medicine; Visit Provider Family Medicine
DX: K82.9 Disease of gallbladder, unspecified (principal); I10 Essential (primary) hypertension
CPT/HCPCS: 36415; 80053; 85025

== ENCOUNTER 2024-12-09 11:00 | Day surgery (SDC) | payer OTHER, SELFPAY ==
[2024-12-08 10:33] VITALS: BMI 38.0
[2024-12-08 11:32] LABS: Basophils # (Auto) 0.1 Thou/mm3 (0.0-0.2); Basophils % (Auto) 1 % (0-2.5); Eosinophils # (Auto) 0.3 Thou/mm3 (0.0-0.5); Eosinophils % (Auto) 5 % (0-10); Hematocrit 41.4 % (41.0-53.0); Hemoglobin 13.5 g/dL (13.5-16.0); Immature Granulocytes Auto 0.02 Thou/mm3 (0.00-0.00); Lymphocytes # (Auto) 1.3 Thou/mm3 (1.0-4.8); Lymphocytes % (Auto) 25 % (10-50); Mean Corpuscular HGB Conc 32.6 g/dl (31.0-37.0); Mean Corpuscular Hemoglobin 29.9 pg (25.0-35.0); Mean Corpuscular Volume 92 fL (80-100); Monocytes # (Auto) 0.4 Thou/mm3 (0.0-0.8); Monocytes % (Auto) 8 % (0-12); Neutrophils # (Auto) 3.0 Thou/mm3 (1.8-7.7); Neutrophils % (Auto) 60 % (37-80); Nucleated Red Blood Cell # 0.00 Thou/mm3 (0.00-0.00); Nucleated Red Blood Cell % 0 /100 WBC (0); Platelet Count 226 Thou/mm3 (140-440); RDW Standard Deviation 45.3 fL (35.1-43.9); Red Blood Count 4.52 Miln/mm3 (4.50-5.90); White Blood Count 5.0 Thou/mm3 (3.8-10.6)
[2024-12-08 11:38] LABS: INR 1.0 (0.9-1.3); Prothrombin Time 10.5 Seconds (9.0-12.2)
[2024-12-08 12:08] LABS: Alanine Aminotransferase 1063 U/L (10-49); Albumin, Serum 4.6 gm/dL (3.4-4.8); Albumin/Globulin Ratio 2.0 (1.2-2.2); Alkaline Phosphatase 299 U/L (46-116); Anion Gap 8 (7-16); Aspartate Amino Transferase 526 U/L (0-34); BUN/Creatinine Ratio 13 Ratio (12-20); Bilirubin,Total 0.8 mg/dL (0.3-1.2); Blood Urea Nitrogen 16 mg/dL (9-23); Calcium 10.5 mg/dL (8.3-10.6); Calcium (Corrected) 10.5 mg/dL (8.5-10.1); Carbon Dioxide 31.3 mMol/L (20.0-31.0); Chloride 105 mMol/L (98-107); Creatinine (Component) 1.2 mg/dL (0.6-1.3); Estimated Creatinine Clearance 87.6 mL/min (>60); Globulin 2.3 gm/dL (2.3-3.5); Glucose 119 mg/dL (74-106); Osmolality,Calculated 289 (275-295); Potassium 3.6 mMol/L (3.4-5.1); Sodium 144 mMol/L (136-145); Total Protein 6.9 gm/dL (5.7-8.2); eGFR > 60 See Note
[2024-12-09] VITALS (8 sets, daily range): BP systolic 105–143; BP diastolic 71–91; PULSE 62–82; RESP 14–18; TEMP 36.2–37.2; O2SAT 95–100; BMI 36.4
--- NOTE | 2024-12-09 13:42 | SUR.PHASEI ---
pt received from OR in recovery bay 2. pt asleep but responds to voice, breathing unlabored on 8l oxymask. v/s stable. pt dressing to abd dermabond x4 cdi. report received from Nuno Corona and Dr. Freire.
--- NOTE | 2024-12-09 14:00 | XR_ITS ---
Examination: Operative cholangiogram Date and time: December 13, 2024 1514 hours INDICATIONS: Status post laparoscopic cholecystectomy TECHNIQUE AND FINDINGS: AP supine abdomen single view Common hepatic duct 13 mm No common hepatic or common bile duct stones. Contrast in the duodenum IMPRESSION: No common hepatic or common bile duct stones
[2024-12-09] MEDS: fentaNYL CIT INJ 50 mCg/ML AMP 2ML 25 MCG IVP (14:03)
--- NOTE | 2024-12-09 14:10 | ESOP_ITS ---
Date of Procedure 12/09/24 Pre Op Diagnosis Symptomatic cholelithiasis Elevated transaminases Post Op Diagnosis Cholelithiasis with cholecystitis Procedure Laparoscopic cholecystectomy with intraoperative cholangiogram Findings Moderately distended gallbladder with a stone at the neck of the gallbladder. Dilated CBD without obvious stones. Anterior surface of the liver was smooth without nodules or any lesions Procedure Description Patient was brought into the operating room in supine position. After administration of general endotracheal anesthesia abdomen was prepped and draped in standard surgical manner. A Veress needle was inserted through the umbilicus and pneumoperitoneum was obtained up to 15 mmHg. The Veress needle was then removed, a 5 mm infraumbilical incision was made and the 5mm trocar was inserted. Laparoscopic camera was placed. Under direct visualization a laparoscopic camera a 10 mm trocar was placed in subxiphoid and two 5 mm trocars placed in right upper quadrant. The anterior surface of the liver was smooth without nodules or any lesions. The gallbladder was identified and was noted to be moderately distended there was a stone at the neck of the gallbladder. The gallbladder was retracted cephalad and laterally. Dissection started near the infundibulum of gallbladder where cystic duct and gallbladder junction clearly identified. The cystic duct was circumferentially dissected off the peritoneum and surrounding inflammatory tissue. The critical view of safety was clearly demonstrated. An Endo Clip placed in the cystic duct and gallbladder junction and a small ductotomy was performed. Cholangiogram catheter was placed through the ductotomy site and contrast was injected. Cholangiogram x-ray revealed filling of contrast into the duodenum, mildly dilated CBD without obvious stones. The cholangiogram catheter was removed and the cystic duct was divided between 2 endoclips proximally and one distally. The cystic artery was then divided between 2 endoclips proximally and 1 distally. The gallbladder was then from the liver bed using electrocautery. The gallbladder was then placed inside an Endo Catch and removed from the abdomen utilizing subxiphoid trocar site. The area was copiously and thoroughly washed and irrigated, all the fluid was suctioned and the suction fluid returned clear. Hemostasis achieved using electrocautery. Endoclips noted be in place and intact without any bleeding or any leakage. Hemostasis was adequate and satisfactory. The subx iphoid trocar sites fascial defect was closed with 0 Vicryl using Endo Closure device. Instruments and trocars removed, pneumoperitoneum was evacuated and the incisions closed with 4-0 Monocryl in subcuticular fashion. Instrument needle and sponge counts were all reported to be correct X2. Patient tolerated the procedure well, was extubated, breathing spontaneously and without difficulty and was transferred to postanesthesia care in stable condition. Anesthesia GETA and local Pathology / specimen Other (Gallbladder and contents) Estimated Blood Loss 10 Condition Stable Disposition PACU Surgeon Noemi Jang MD Surgical Staff Operation Date: 12/09/24 14:15 Case Staff Anesthesiologist: Kareem Freire RN First Assistant: Janeth Little
--- NOTE | 2024-12-09 14:39 | SUR.PHASEII ---
pt able to tolerate oral fluids without difficulty swallowing or nauea/vomiting.
--- NOTE | 2024-12-09 15:00 | SUR.PHASEII ---
pt awake and alert, breathing unlabored on room air. v/s stable. pt dressing to abd dermabond x4 cdi. pt able to ambulate to wheelchair with steady gait. d/c instructions given with Caroline in room, all questions answered. pt d/c via wheelchair with all belongings.
== END 2024-12-09 15:00 | disposition home or self-care (01) ==
PROVIDERS: PCP Family Medicine; Referring Provider Surgery; Visit Provider Surgery
PROC: 0FT44ZZ Resection of Gallbladder, Percutaneous Endoscopic Approach (ICD-10-PCS; CPT 47562; principal; 2024-12-09 14:00)
DX: K80.10 Calculus of gallbladder with chronic cholecystitis without obstruction (principal); E78.00 Pure hypercholesterolemia, unspecified; I10 Essential (primary) hypertension; K21.9 Gastro-esophageal reflux disease without esophagitis
CPT/HCPCS: 47563; 36415; 74300; 80053; 85025; 85610; A4217; A4649; J0131; J0694; J1100; J2250; J2405; J2704; J3010; J3490

== ENCOUNTER → 2025-01-21 | Outpatient (CLI) | payer OTHER, SELFPAY ==
[2025-01-21 08:18] LABS: Collection Type, Urine Clean Catch; Squamous Epithelial Cell,Urine 0 /hpf (0-5)
[2025-01-21 08:51] LABS: Basophils # (Auto) 0.1 Thou/mm3 (0.0-0.2); Basophils % (Auto) 1 % (0-2.5); Eosinophils # (Auto) 0.3 Thou/mm3 (0.0-0.5); Eosinophils % (Auto) 6 % (0-10); Hematocrit 45.1 % (41.0-53.0); Hemoglobin 14.9 g/dL (13.5-16.0); Immature Granulocytes Auto 0.01 Thou/mm3 (0.00-0.00); Lymphocytes # (Auto) 1.5 Thou/mm3 (1.0-4.8); Lymphocytes % (Auto) 29 % (10-50); Mean Corpuscular HGB Conc 33.0 g/dl (31.0-37.0); Mean Corpuscular Hemoglobin 29.9 pg (25.0-35.0); Mean Corpuscular Volume 91 fL (80-100); Monocytes # (Auto) 0.6 Thou/mm3 (0.0-0.8); Monocytes % (Auto) 11 % (0-12); Neutrophils # (Auto) 2.9 Thou/mm3 (1.8-7.7); Neutrophils % (Auto) 54 % (37-80); Nucleated Red Blood Cell # 0.00 Thou/mm3 (0.00-0.00); Nucleated Red Blood Cell % 0 /100 WBC (0); Platelet Count 171 Thou/mm3 (140-440); RDW Standard Deviation 44.4 fL (35.1-43.9); Red Blood Count 4.98 Miln/mm3 (4.50-5.90); White Blood Count 5.4 Thou/mm3 (3.8-10.6)
[2025-01-21 08:56] LABS: Bilirubin,Urine Negative (Negative); Blood,Urine Negative (Negative); Clarity,Urine Clear (Clear/Hazy); Color,Urine Yellow (Lt Yel-Yel); Glucose, Urine Negative (Negative); Ketones,Urine Negative (Negative); Leukocyte Esterase,Urine Negative (Negative); Nitrite,Urine Negative (Negative); PH,Urine 6.0 (5.0-7.0); Protein,Urine Negative (Neg - Trace); RBC,Urine 1 /hpf (0-3); Specific Gravity,Urine 1.022 (1.001-1.035); Urobilinogen,Urine Negative mg/dL (0.0-1.0); WBC,Urine 1 /hpf (0-5)
[2025-01-21 09:01] LABS: Glucose Estimated Average 131 mg/dL (80-131); Hemoglobin A1C 6.2 % Hgb (4.8-6.0)
[2025-01-21 09:15] LABS: Prostate Specific Antigen 2.59 ng/mL (0-4.00)
[2025-01-21 09:23] LABS: Alanine Aminotransferase 68 U/L (10-49); Albumin, Serum 4.2 gm/dL (3.4-4.8); Albumin/Globulin Ratio 1.9 (1.2-2.2); Alkaline Phosphatase 88 U/L (46-116); Anion Gap 8 (7-16); Aspartate Amino Transferase 49 U/L (0-34); BUN/Creatinine Ratio 16 Ratio (12-20); Bilirubin,Total 0.7 mg/dL (0.3-1.2); Blood Urea Nitrogen 19 mg/dL (9-23); Calcium 10.0 mg/dL (8.3-10.6); Calcium (Corrected) 10.0 mg/dL (8.5-10.1); Carbon Dioxide 29.1 mMol/L (20.0-31.0); Cardiac Risk Estimate 5.3 RATIO (4.0-6.7); Chloride 107 mMol/L (98-107); Cholesterol 223 mg/dL (132-200); Creatinine (Component) 1.2 mg/dL (0.6-1.3); Globulin 2.2 gm/dL (2.3-3.5); Glucose 121 mg/dL (74-106); HDL Cholesterol 42 mg/dL (40-60); LDL Cholesterol,Calculated 137 mg/dL (0-130); Osmolality,Calculated 290 (275-295); Potassium 4.3 mMol/L (3.4-5.1); Sodium 144 mMol/L (136-145); Total Protein 6.4 gm/dL (5.7-8.2); Triglycerides 218 mg/dL (30-150); eGFR > 60 See Note
== END | disposition home or self-care (01) ==
LOC: COPL 06:50
PROVIDERS: PCP Family Medicine; Referring Provider Family Medicine; Visit Provider Surgery
DX: E11.69 Type 2 diabetes mellitus with other specified complication (principal); E78.2 Mixed hyperlipidemia; I10 Essential (primary) hypertension; R94.5 Abnormal results of liver function studies; N40.0 Benign prostatic hyperplasia without lower urinary tract symptoms
CPT/HCPCS: 36415; 80053; 80061; 81001; 83036; 84153; 85025

== ENCOUNTER 2025-01-25 06:10 | Day surgery (SDC) | payer OTHER, SELFPAY ==
[2025-01-21 07:31] VITALS: BMI 36.2
--- NOTE | 2025-01-24 12:04 | ESHP_ITS ---
RE: MARY QUINONES : 1965 DATE OF ADMISSION: 01/24/2025 HISTORY OF PRESENT ILLNESS: He is a 59-year-old male with a history of right- sided hydronephrosis. The patient is a 59-year-old male referred to me by Dr. Kennedy with abdominal pain in the upper abdomen. He has pain on the upper abdomen. Serum creatinine is 1.2. The patient was initially seen in [place] where he was told that he has a cyst on the right kidney. The patient has nocturia x2. His urinary flow is fair. PAST MEDICAL HISTORY: He had a history of gallstones. He has a history of diabetes mellitus, which is controlled by diet. He has a history of hypertension. PAST SURGICAL HISTORY: The patient's previous surgery included cholecystectomy, which was done by Dr. Jang. He had a colonoscopy. SOCIAL HISTORY: He has 3 children. ALLERGIES: NONE KNOWN. HOME MEDICATIONS: 1. Tamsulosin 0.4 mg, which is helping him to urinate. 2. Pepcid. 3. Lisinopril. 4. Hydrochlorothiazide. PHYSICAL EXAMINATION: The patient is 5 feet 11 inches tall. HEENT: Normal. NECK: Supple. LUNGS: Clear. CARDIOVASCULAR: Heart sounds are normal. ABDOMEN: Soft without any organomegaly. No guarding. No rigidity. EXTREMITIES: Normal. GENITOURINARY: Phallus is normal. Testes are down in the scrotum. Rectal examination reveals moderately enlarged smooth prostate without any hard nodules. LABORATORY DATA: CT scan of the abdomen and pelvis, which was obtained, which revealed markedly dilated right renal pelvic collecting system suggestive of congenital right ureteropelvic junction obstruction. There are no stones seen in the kidney or the ureter. IMPRESSION: Right ureteropelvic junction obstruction with right hydronephrosis. PLAN: Cystoscopy, right retrograde pyelogram, right ureteroscopy, and insertion of the right ureteral stent. Planned procedure, risks, and complications have been discussed with the patient. The patient has understood them and agreed to proceed. Thank you very much for allowing me to participate in the management of this patient and thank you very much for your kind referral. cc: Dr. Dann Kennedy MD DT: 11:51:34 TT: 12:03:00 Ref: [id number] - TID: [id number]
[2025-01-25] VITALS (7 sets, daily range): BP systolic 93–124; BP diastolic 53–83; PULSE 74–82; RESP 16–20; TEMP 36.8–37.1; O2SAT 95–97; BMI 37.1
[2025-01-25] MEDS: RINGERS LACTATED 1000 ML 1,000 ML 20 ML IV (06:58)
--- NOTE | 2025-01-25 07:20 | CHAP ---
Visited with patient and gave comfort, encouragement and prayer.
--- NOTE | 2025-01-25 08:30 | XR_ITS ---
Examination: Fluoroscopy Ureteroscopy retrograde 5 spot fluoroscopic abdomen films Date and time: January 25, 2025 1012 hours INDICATIONS: Generalized abdominal pain and vomiting history history right congenital ureteropelvic junction obstruction TECHNIQUE AND FINDINGS: 5 spot fluoroscopic films of the abdomen Contrast in dilated calyces Partial visualization ureteral stent Fluoroscopy 2 minutes 52 seconds Radiation dose 89.182 milligray IMPRESSION: Fluoroscopy for ureteroscopy as above
--- NOTE | 2025-01-25 09:43 | SUR.PHASEI ---
0943 patient arrived to recovery resting comfortably in [facility], on oxygen 5L via oxy mask, breathing unlabored, vital signs stable, denies pain and nausea, report received from James WATSON and [place]esto GANNON/Dr. Freire
--- NOTE | 2025-01-25 10:41 | SUR.PHASEII ---
1041 patient meets discharge criteria from recovery, awake and alert, breathing unlabored, vital signs stable, denies pain and nausea, voided in the restroom, assisted with dressing into his clothing by his , discharge instructions given to patient and patients , signed discharge instructions. Patient given all his belongings prior to discharge, transported via wheelchair and left in a private vehicle.
--- NOTE | 2025-01-25 11:46 | ESOP_ITS ---
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 PROCEDURE: Cystoscopy, right retrograde pyelogram, attempt to pass a guidewire and a stent on the right side. ANESTHESIA: General by Dr. Freire. INDICATION: The patient is a 59-year-old gentleman who had a right-sided upper abdominal pain and he underwent cholecystectomy done by Dr. Jang. The patient's pain on the right side subsided and he does not have any more pain. At that time, CT scan of the abdomen and pelvis was obtained, which revealed bilateral renal cysts and a massively dilated right renal pelvis suggestive of right ureteropelvic junction obstruction. The patient had cholecystectomy done and he has no more pain after the cholecystectomy. The patient's serum creatinine is normal at 1.2. In view of his finding of CAT scan and a massively dilated right renal pelvis, the patient was now scheduled to have cystoscopy, right retrograde pyelogram, and possible insertion of the right ureteral stent. Planned procedure, risks, and complications have been discussed with the patient. The patient understood them and agreed to proceed. DESCRIPTION OF PROCEDURE: After the patient was brought to the operating table under adequate general anesthesia and dorsal lithotomy position, parts were prepped and draped in the usual fashion. Cystoscopy was then carried out, which revealed adequate urethral meatus, normal-appearing urethra, moderately enlarged prostate, which is bilobed. The patient did not have any intravesical stones or tumors. Ureteral orifices are visualized. The right ureteral orifice is closer to the bladder neck and it was catheterized after passing a guidewire through the right ureteral orifice and it was inserted to the proximal ureter. Then on the guidewire, I inserted an open- tip ureteral catheter and removed the guidewire. A right retrograde pyelogram was then obtained, which revealed that the right ureter is open, but there is a massively dilated right renal pelvis causing distortion of the right ureteropelvic junction obstruction. Right ureteropelvic junction appears to have a high insertion of the ureter and it is quite distorted. Multiple attempts were to pass this ureteral catheter and a guidewire which were straight guidewire and curved guidewire, but they would not go upwards toward the renal pelvis into the right kidney. Because of massively dilated ureteropelvic junction obstruction and a massively dilated right renal pelvis, it was decided that we should abandon the procedure as the wire did not go into the right kidney. Procedure was then terminated. The patient tolerated the entire procedure well. PLAN: In view of this massively dilated renal pelvis, consideration would be given to refer this patient for the repair of ureteropelvic junction obstruction through the robotic procedure. Thank you very much for your kind referral and for allowing me to participate in the management of this patient. cc: Dr. Dann Kennedy MD DT: 11:04:12 TT: 11:45:00 Ref: [id number] - TID: [id number]
== END 2025-01-25 10:41 | disposition home or self-care (01) ==
PROVIDERS: PCP Family Medicine; Referring Provider Surgery; Visit Provider Surgery
PROC: (CPT 52282; 2025-01-25 08:30)
DX: N13.1 Hydronephrosis with ureteral stricture, not elsewhere classified (principal); N28.1 Cyst of kidney, acquired; E11.9 Type 2 diabetes mellitus without complications; I10 Essential (primary) hypertension
CPT/HCPCS: 52281; 76000; 87086; A4217; A4649; C1894; J0131; J0694; J1100; J2250; J2371; J2704; J2765; J3010; J3490; J7120; A9270

== ENCOUNTER → 2025-02-22 | Outpatient (CLI) | payer BC, SELFPAY ==
--- NOTE | 2025-02-22 15:10 | EKG_ITS ---
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
[2025-02-22 16:34] LABS: Basophils # (Auto) 0.1 Thou/mm3 (0.0-0.2); Basophils % (Auto) 1 % (0-2.5); Eosinophils # (Auto) 0.3 Thou/mm3 (0.0-0.5); Eosinophils % (Auto) 5 % (0-10); Hematocrit 43.2 % (41.0-53.0); Hemoglobin 14.1 g/dL (13.5-16.0); Immature Granulocytes Auto 0.01 Thou/mm3 (0.00-0.00); Lymphocytes # (Auto) 1.7 Thou/mm3 (1.0-4.8); Lymphocytes % (Auto) 27 % (10-50); Mean Corpuscular HGB Conc 32.6 g/dl (31.0-37.0); Mean Corpuscular Hemoglobin 30.0 pg (25.0-35.0); Mean Corpuscular Volume 92 fL (80-100); Monocytes # (Auto) 0.7 Thou/mm3 (0.0-0.8); Monocytes % (Auto) 11 % (0-12); Neutrophils # (Auto) 3.5 Thou/mm3 (1.8-7.7); Neutrophils % (Auto) 57 % (37-80); Nucleated Red Blood Cell # 0.00 Thou/mm3 (0.00-0.00); Nucleated Red Blood Cell % 0 /100 WBC (0); Platelet Count 198 Thou/mm3 (140-440); RDW Standard Deviation 45.1 fL (35.1-43.9); Red Blood Count 4.70 Miln/mm3 (4.50-5.90); White Blood Count 6.2 Thou/mm3 (3.8-10.6)
[2025-02-22 16:51] LABS: Alanine Aminotransferase 45 U/L (10-49); Albumin, Serum 4.3 gm/dL (3.4-4.8); Albumin/Globulin Ratio 2.3 (1.2-2.2); Alkaline Phosphatase 75 U/L (46-116); Anion Gap 9 (7-16); Aspartate Amino Transferase 51 U/L (0-34); BUN/Creatinine Ratio 17 Ratio (12-20); Bilirubin,Total 0.4 mg/dL (0.3-1.2); Blood Urea Nitrogen 17 mg/dL (9-23); Calcium 9.1 mg/dL (8.3-10.6); Calcium (Corrected) 9.1 mg/dL (8.5-10.1); Carbon Dioxide 26.4 mMol/L (20.0-31.0); Chloride 108 mMol/L (98-107); Creatinine (Component) 1.0 mg/dL (0.6-1.3); Globulin 1.9 gm/dL (2.3-3.5); Glucose 119 mg/dL (74-106); Osmolality,Calculated 287 (275-295); Potassium 4.0 mMol/L (3.4-5.1); Sodium 143 mMol/L (136-145); Total Protein 6.2 gm/dL (5.7-8.2); eGFR > 60 See Note
[2025-02-22 16:53] LABS: INR 1.0 (0.9-1.3); Partial Thromboplastin Time 26.3 Seconds (22.0-36.0); Prothrombin Time 10.2 Seconds (9.0-12.2)
== END | disposition home or self-care (01) ==
PROVIDERS: PCP Family Medicine; Referring Provider Family Medicine; Visit Provider Family Medicine
DX: Z01.812 Encounter for preprocedural laboratory examination (principal); I10 Essential (primary) hypertension; E78.2 Mixed hyperlipidemia; R94.5 Abnormal results of liver function studies; Q62.11 Congenital occlusion of ureteropelvic junction; Z01.810 Encounter for preprocedural cardiovascular examination
CPT/HCPCS: 36415; 80053; 81001; 85025; 85610; 85730; 93005

== ENCOUNTER → 2025-03-17 | Outpatient (CLI) | payer BC, SELFPAY ==
--- NOTE | 2025-03-17 13:00 | XR_ITS ---
EXAMINATION: Nuclear medicine kidney imaging flow and function multiple studies Date and time: March 17, 2025, 1602 hours INDICATIONS: Upper abdominal pain, bilateral renal cysts and massively dilated right renal pelvis on CT examination November 24, 2024 TECHNIQUE AND FINDINGS: Intravenous ministration 10.3 mCi technetium MAG3, injection 40 mg Lasix 20 minutes after MAG3 injection Flow and function curves generated to 60 minutes Normal flow and function left kidney Normal flow right kidney with significantly reduced right renal function, no Lasix effect upon the excretion of the right kidney, delayed renal function right kidney at 60 minutes IMPRESSION: Significantly impaired right renal function
[2025-03-17 15:00] VITALS: BP 110/69; PULSE 78; RESP 16; O2SAT 96
[2025-03-17 15:05] VITALS: BP 117/71; PULSE 77; RESP 14; O2SAT 96
[2025-03-17 15:53] VITALS: BP 110/69; PULSE 78
[2025-03-17] MEDS: FUROSEMIDE INJ 10 MG/ML VIAL 2 ML 40 MG IVP (15:53)
== END | disposition home or self-care (01) ==
PROVIDERS: PCP Family Medicine
DX: N28.9 Disorder of kidney and ureter, unspecified (principal)
CPT/HCPCS: 78709; A9562; J1938